=== PATIENT | female | born 1960 ===

== ENCOUNTER 2018-10-06 11:43 | Emergency (ER) | payer SELFPAY ==
[2018-10-06 11:43] VITALS: BMI 41.1
--- NOTE | 2018-10-06 12:54 | C.PDOC ---
History Of Present Illness 58 y/o female pt with hx of HTN and elevated Vitamin K because she drinks a lot of green vegetable juice presents to the ER c/o upper respiratory wheezing for x2 weeks. Associated sx includes fatigue, cough, malaise, felt febrile, sore throat and bloody sputum. Pt has not f/u with a doctor for her sx. Pt notes she had post menopausal bleeding and received a biopsy that showed pre-cancer but did not have a hysterectomy. Time Seen by Provider: 10/06/18 12:13 Chief Complaint (Nursing): Shortness Of Breath History Per: Patient History/Exam Limitations: no limitations Onset/Duration Of Symptoms: Days (x2 weeks ) Current Symptoms Are (Timing): Still Present Past Medical History Reviewed: Historical Data, Nursing Documentation, Vital Signs Vital Signs: Last Vital Signs Temp 98.3 F 10/06/18 11:50 Pulse 80 10/06/18 11:50 Resp 22 10/06/18 12:10 BP 188/100 H 10/06/18 11:50 Pulse Ox 95 10/06/18 12:10 - Medical History PMH: HTN Family History: States: Unknown Family Hx - Social History Hx Alcohol Use: No Hx Substance Use: No Review Of Systems Except As Marked, All Systems Reviewed And Found Negative. Constitutional: Positive for: Weakness, Malaise ENT: Positive for: Throat Pain Respiratory: Positive for: Cough, Sputum (bloody ), Wheezing Physical Exam - Physical Exam Appears: Non-toxic, No Acute Distress Skin: Warm, Dry Head: Normacephalic Eye(s): bilateral: Normal Inspection Oral Mucosa: Moist Chest: Symmetrical Cardiovascular: Rhythm Regular Respiratory: Decreased Breath Sounds, Wheezing (b/l) Gastrointestinal/Abdominal: Soft, No Tenderness Extremity: Other (pitting edema ) ED Course And Treatment - Laboratory Results Result Diagrams: 10/06/18 13:00 10/06/18 13:00 O2 Sat by Pulse Oximetry: 95 (RA) Pulse Ox Interpretation: Normal - Other Rad CXR X-Ray: Viewed By Me, Read By Radiologist Interpretation: IMPRESSION: No focal consolidation. Medical Decision Making Medical Decision Making: Differential Diagnosis included but are not limited to: Cardiac V.S. Flu Plans: -- EKG -- Chem labs -- blood work -- CXR Reevaluation: Labs: troponin and BNP levels unremarkable No indication of CHF Patient feels better following steroid and nebulizer tx and wants to go home Disposition Counseled Patient/Family Regarding: Studies Performed, Diagnosis, Need For Followup, Rx Given - Disposition Disposition: HOME/ ROUTINE Disposition Time: 16:03 Condition: STABLE Prescriptions: Albuterol HFA [Ventolin HFA 90 mcg/actuation (8 g)] 1 puff IH QID PRN #1 puff PRN Reason: Cough Azithromycin 1 tab PO DAILY #6 tab Prednisone [Deltasone] 60 mg PO DAILY #12 tablet Instructions: Acute Bronchitis Forms: [facility] (Eth[place]ian), General Discharge Instructions, Work Excuse - POA Present On Arrival: None - Clinical Impression Clinical Impression: Bronchitis - Scribe Statement The provider has reviewed the documentation as recorded by the Shmuel Chen Do Provider Attestation: All medical record entries made by the Jose Eliasibdany were at my direction and personally dictated by me. I have reviewed the chart and agree that the record accurately reflects my personal performance of the history, physical exam, medical decision making, and the department course for this patient. I have also personally directed, reviewed, and agree with the discharge instructions and disposition.
[2018-10-06 13:10] LABS: BASO # 0.1 K/uL (0.0-0.2); BASO % 0.8 % (0.0-2.0); EOS # 0.4 K/uL (0.0-0.7); HEMOGLOBIN 13.5 g/dL (11.0-16.0); LYMPH % 22.6 % (20.0-40.0); MEAN CELL VOLUME 86.2 fL (81.0-99.0); MEAN CORPUSCULAR HGB CONC 33.7 g/dL (33.0-37.0); MEAN PLATELET VOLUME 8.4 fL (7.2-11.7); MONO # 0.6 K/uL (0.0-0.8); MONO % 6.8 % (0.0-10.0); NEUT # 5.6 K/uL (1.8-7.0); NEUT % 64.8 % (50.0-75.0); RBC 4.64 Mil/uL (3.80-5.20); RED CELL DISTRIBUTION WIDTH 14.6 % (11.5-14.5); WHITE BLOOD COUNT 8.7 K/uL (4.8-10.8)
--- NOTE | 2018-10-06 13:13 | RAD ---
HISTORY: chest pain COMPARISON: Chest x-ray performed 09/18/16 TECHNIQUE: Chest PA and lateral FINDINGS: LUNGS: No focal consolidation. Please note that chest x-ray has limited sensitivity for the detection of pulmonary masses. PLEURA: No significant pleural effusion identified. No definite pneumothorax . CARDIOVASCULAR: Heart size appears within normal limits. Atherosclerotic calcifications of the aortic knob. OSSEOUS STRUCTURES: Degenerative changes. VISUALIZED UPPER ABDOMEN: Unremarkable. OTHER FINDINGS: None. IMPRESSION: No focal consolidation.
[2018-10-06 13:24] LABS: ALB/GLOB RATIO 1.3 (1.0-2.1); ALBUMIN 4.3 g/dL (3.5-5.0); ALT/SGPT 32 U/L (9-52); AST/SGOT 35 U/L (14-36); BLOOD UREA NITROGEN 13 mg/dL (7-17); GFR NON-AFRICAN AMERICAN > 60
[2018-10-06] MEDS ORDERED: Albuterol 0.083% Inhal Sol (2.5 mg/3 mL) UD ONE (15:00)
[2018-10-06] MEDS: Albuterol 0.083% Inhal Sol (2.5 mg/3 mL) UD INH SCH (15:32)
[2018-10-06 16:37] VITALS: BP 160/84; PULSE 70; RESP 19; TEMP 98.3; O2SAT 98
--- NOTE | 2018-10-10 10:12 | CARD ---
APPROVED REPORT Date of service: 10/06/2018 EKG Measurement Heart [id number] <Conclusion> Atrial fibrillation Septal infarct, age undetermined Abnormal ECG
== END 2018-10-06 16:38 | disposition home or self-care (01) ==
LOC: C.ER 11:43
DX: J40 Bronchitis, not specified as acute or chronic (principal)

== ENCOUNTER 2018-11-19 11:46 | Emergency (ER) | payer OTHER ==
[2018-11-19 12:07] VITALS: BMI 37.2
[2018-11-19 12:09] VITALS: TEMP 98.3
[2018-11-19] MEDS ORDERED: Albuterol-Ipratrop 3 mg / 0.5 (3 ml) UD INH STA (12:10)
[2018-11-19] MEDS ORDERED: Albuterol-Ipratrop 3 mg / 0.5 (3 ml) UD ONE ×2 (12:14→12:50)
[2018-11-19 12:38] VITALS: RESP 20; O2SAT 94
[2018-11-19] MEDS: Albuterol-Ipratrop 3 mg / 0.5 (3 ml) UD IH SCH (13:01)
[2018-11-19 13:12] LABS: BASO # 0.1 K/uL (0.0-0.2); BASO % 0.7 % (0.0-2.0); EOS # 0.5 K/uL (0.0-0.7); EOS % 6.1 % (0.0-4.0); HEMOGLOBIN 13.9 g/dL (11.0-16.0); LYMPH % 21.9 % (20.0-40.0); MEAN CELL VOLUME 86.2 fL (81.0-99.0); MEAN CORPUSCULAR HEMOGLOBIN 29.1 pg (27.0-31.0); MEAN CORPUSCULAR HGB CONC 33.7 g/dL (33.0-37.0); MEAN PLATELET VOLUME 8.8 fL (7.2-11.7); MONO # 0.6 K/uL (0.0-0.8); MONO % 6.2 % (0.0-10.0); NEUT # 5.8 K/uL (1.8-7.0); NEUT % 65.1 % (50.0-75.0); RBC 4.78 Mil/uL (3.80-5.20); RED CELL DISTRIBUTION WIDTH 15.3 % (11.5-14.5); WHITE BLOOD COUNT 8.9 K/uL (4.8-10.8)
--- NOTE | 2018-11-19 13:17 | C.PDOC ---
History Of Present Illness 58 year old female with a history of hyperthyroidism, hypertension, and asthma presents for evaluation of worsening wheezing and productive cough for 2 weeks. Pt reports similar symptoms 11.27.18. 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 Pt notes SOB and worsening of symptoms when walking. Denies fever, chills, leg swelling, and any other associated symptoms. Time Seen by Provider: 11/19/18 12:00 Chief Complaint (Nursing): Shortness Of Breath History Per: Patient History/Exam Limitations: no limitations Onset/Duration Of Symptoms: Days (x2 weeks) Current Symptoms Are (Timing): Still Present Exacerbating Factor(s): Laying Flat Associated Symptoms: denies: Fever, Chills Recent travel outside of the [place]: No Past Medical History Reviewed: Historical Data, Nursing Documentation, Vital Signs Vital Signs: Last Vital Signs Temp 98.3 F 11/19/18 12:07 Pulse 78 11/19/18 12:42 Resp 20 11/19/18 12:42 BP 134/81 11/19/18 12:42 Pulse Ox 94 L 11/19/18 12:42 - Medical History PMH: Asthma, HTN Family History: States: Unknown Family Hx - Social History Hx Alcohol Use: No Hx Substance Use: No - Immunization History Hx Tetanus Toxoid Vaccination: No Hx Influenza Vaccination: No Hx Pneumococcal Vaccination: No Review Of Systems Except As Marked, All Systems Reviewed And Found Negative. Constitutional: Negative for: Fever, Chills Respiratory: Positive for: Cough (productive. ), Wheezing Musculoskeletal: Negative for: Other ((-) leg swelling. ) Physical Exam - Physical Exam Appears: Non-toxic, Other ((+) mild respiratory distress) Skin: Warm, Dry, No Rash Head: Atraumatic, Normacephalic Eye(s): bilateral: Normal Inspection Oral Mucosa: Moist Neck: Normal ROM, Supple Chest: Symmetrical, No Deformity Cardiovascular: Rhythm Regular, No Murmur Respiratory: Wheezing (bilateral. ), Other Gastrointestinal/Abdominal: Normal Exam, Soft, No Tenderness Extremity: Normal ROM, No Deformity, No Swelling Neurological/Psych: Oriented x3, Normal Speech, Normal Cognition, Other (s peaking full sentences. ) ED Course And Treatment - Laboratory Results Result Diagrams: 11/19/18 13:03 11/19/18 13:03 O2 Sat by Pulse Oximetry: 94 Pulse Ox Interpretation: Abnormal - Other Rad CXR X-Ray: Read By Radiologist Interpretation: Findings: Mild venous congestion. Right hilar prominence. Enlarged ectatic aorta. Cardiomegaly. Degenerative changes in the spine and shoulders. Impression: Mild venous congestion. Right hilar prominence. Enlarged ectatic aorta. Cardiomegaly. Medical Decision Making Medical Decision Making: Initial plan: -EKG -Blood sent. -CXR -Duoneb -Solu-medrol -Urinalysis On re-exam, the patient reports improvement of symptoms. Lungs are CTA, heart is RRR, abdomen is soft, non-tender and tolerating PO well. Pt is ambulatory in the ED with steady gait. Follow up with the medical doctor within 1-2 days. Return if worsened. Disposition - Disposition Referrals: [facility] [Outside] Disposition: HOME/ ROUTINE Disposition Time: 15:48 Condition: STABLE Additional Instructions: Follow up with the medical doctor within 1-2 days. Return if worsened. Prescriptions: Albuterol 0.5% [Albuterol 0.5% Inhal Zaria (2.5 mg/0.5 ml) UD] 0.5 ml IH Q6 PRN #20 neb PRN Reason: Wheezing Albuterol HFA [Ventolin HFA 90 mcg/actuation (8 g)] 1 puff IH Q6 #100 puff Azithromycin [Zithromax] 250 mg PO DAILY #6 tab predniSONE [Prednisone] 20 mg PO BID #10 tab Instructions: Acute Bronchitis Forms: [employer] (Ukrainian) Print Language: [employer] GUINEAN - Clinical Impression Clinical Impression: Bronchitis, COPD exacerbation - PA / DIRECTOR RISK / Resident Statement MD/DO has reviewed & agrees with the documentation as recorded. - Scribe Statement The provider has reviewed the documentation as recorded by the Scribe (Kimberly Escalante) All medical record entries made by the Scribe were at my direction and personally dictated by me. I have reviewed the chart and agree that the record accurately reflects my personal performance of the history, physical exam, medical decision making, and the department course for this patient. I have also personally directed, reviewed, and agree with the discharge instructions and disposition.
[2018-11-19 13:31] LABS: B-TYPE NATRIURETIC PEPTIDE 821 pg/mL (0-900)
[2018-11-19 13:44] LABS: ALB/GLOB RATIO 1.3 (1.0-2.1); ALBUMIN 4.2 g/dL (3.5-5.0); ALT/SGPT 26 U/L (9-52); AST/SGOT 26 U/L (14-36); BLOOD UREA NITROGEN 14 mg/dL (7-17); CALCIUM 9.3 mg/dl (8.6-10.4); GFR NON-AFRICAN AMERICAN > 60
--- NOTE | 2018-11-19 13:54 | RAD ---
Chest x-ray two views HISTORY: Shortness of breath. Comparison: 10/06/2018 Findings: Mild venous congestion. Right hilar prominence. Enlarged ectatic aorta. Cardiomegaly. Degenerative changes in the spine and shoulders. Impression: Mild venous congestion. Right hilar prominence. Enlarged ectatic aorta. Cardiomegaly.
[2018-11-19 16:09] VITALS: BP 143/91; PULSE 86
[2018-11-19 16:18] LABS: SQUAMOUS EPITHIAL < 1 /hpf (0-5); URINE BILIRUBIN NEGATIVE (NEGATIVE); URINE BLOOD NEGATIVE (NEGATIVE); URINE CLARITY Clear (Clear); URINE COLOR Straw (YELLOW); URINE GLUCOSE (UA) NORMAL (Normal); URINE LEUKOCYTE ESTERASE NEG Leu/uL (Negative); URINE PROTEIN NEGATIVE (NEGATIVE); URINE UROBILINOGEN NORMAL mg/dL (0.2-1.0)
== END 2018-11-19 16:15 | disposition home or self-care (01) ==
LOC: C.ER 11:46
DX: J44.1 Chronic obstructive pulmonary disease with (acute) exacerbation (principal)
CPT/HCPCS: 71046; 80053; 81001; 83880; 84484; 85025; 94640; 96374; 99285; J2930

== ENCOUNTER 2018-12-11 18:23 | Outpatient (CLI) | payer SELFPAY | END 2018-12-11 18:24 | disposition home or self-care (01) | LOC: C.SLEEP 18:24 | DX: G47.30 Sleep apnea, unspecified (principal) ==